=== PATIENT | male | born 1995 | race Caucasian/White ===

== ENCOUNTER 2022-04-18 00:28 | Observation (INO) | payer MEDICAID, SELFPAY ==
[2022-04-18] VITALS (29 sets, daily range): BP systolic 100–163; BP diastolic 41–91; PULSE 48–96; RESP 12–23; TEMP 36.4–37.2; O2SAT 91–100; BMI 30.1
--- NOTE | 2022-04-18 00:47 | XRR_ITS ---
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 TECHNIQUE: Imaging protocol: Radiologic exam of the abdomen. Views: Frontal supine view of the abdomen. 1 View. COMPARISON: No relevant prior studies available. FINDINGS: Gastrointestinal tract: Bowel gas pattern is unremarkable. No sign of obstruction. Intraperitoneal space: No gross free air. Bones/joints: Bones are unremarkable. XR/XR KUB [id number] IMPRESSION: No acute findings.
[2022-04-18 00:52] LABS: Basophils # 0.1 10^3/uL (0.0-0.1); Basophils % 0.5 %; Eosinophils % 0.2 %; Hematocrit 47.6 % (42.0-52.0); Hemoglobin 16.1 g/dL (11.7-16.6); Lymphocytes # 2.6 10^3/uL (0.8-4.8); Lymphocytes % 15.6 %; Mean Corpuscular HGB Conc 33.8 g/dL (30.0-36.0); Mean Corpuscular Hemoglobin 29.4 pg (28.0-34.0); Mean Corpuscular Volume 86.9 fl (80-94); Mean Platelet Volume 11.5 fL (7.4-10.4); Monocytes # 0.9 10^3/uL (0.2-0.9); Monocytes % 5.6 %; Neutrophils # 12.82 10^3/uL (1.8-7.7); Neutrophils % 77.6 %; Nucleated Red Blood Cells % 0 %; Platelet Count 273 10^3/cmm (130-400); Red Blood Count 5.48 10^6/uL (4.1-5.3); Red Cell Distribution Width 11.8 % (12.1-15.1); White Blood Count 16.5 10^3/uL (4.0-10.0)
--- NOTE | 2022-04-18 00:53 | W.ED.ABDPA2 ---
HPI - Abdominal Pain General: Chief Complaint: Abdominal Pain Stated Complaint: Abd pain Time Seen by Provider: 04/18/22 00:38 History of Present Illness: Patient is in today for abdominal pain. Patient does all of the history as patient is in bed grimacing in pain. reports that 3 hours ago patient started with sudden onset abdominal pain. She reports it was after they ate dinner. She reports that he and the rest of the family all ate the same thing and nobody else is feeling ill. She denies that he has been ill or complaining of anything prior to this. She did try and give him some medication for constipation however she believes he threw all of that up. She reports he has vomited 3 or 4 times in the past 3 hours. She denies that the patient has any significant medical history that they are aware of. She denies that he has any allergies to medications. Associated Symptoms: Reports nausea and vomiting; Denies chills, constipation, diarrhea, dysuria and fever(s) Review of Systems Const: Denies: fever(s) or chills Card: Denies: chest pain or palpitations Resp: Denies: dyspnea, productive cough or non-productive cough GI: Reports: abdominal pain, nausea and vomiting; Denies: diarrhea or constipation : Denies: flank pain, difficulty urinating or dysuria Physical Exam Narrative: EXAM NARRATIVE: Patient is laying on his left side when I enter the room. He is holding his abdomen and grimacing in pain. He is minimally cooperative with HPI questioning. He attempts to roll onto his back for examination but starts screaming and rolls directly back over to his side. He is guarding his entire abdomen through the entire exam Const: COMMON NORMALS: alert EXAM LIMITATIONS: other limitations (Pain) Neck/C-Spine: COMMON NORMALS: no JVD Resp: COMMON NORMALS: normal respiratory effort, No use of accessory muscles and clear to auscultation bilaterally AUSCULTATION: clear to auscultation bilaterally Cardio: COMMON NORMALS: no JVD, regular rate, regular rhythm, S1 normal heart sound present, S2 normal heart sound present and No murmurs present (Cardio) RATE: regular rate RHYTHM: regular rhythm HEART SOUNDS: S1 normal heart sound present and S2 normal heart sound present GI: COMMON NORMALS: Normal to inspection, nondistended, normoactive bowel sounds present and Soft to palpation PALPATION: Yes Soft to palpation, Yes Tenderness to palpation present (GI) Details: LLQ, RLQ, LUQ and RUQ and Yes Guarding due to palpation present (GI) in the LLQ, in the RLQ, in the LUQ and in the RUQ Neuro: SENSORIUM/ORIENTATION: Yes alert Course ED course: Patient was given morphine and Zofran for pain. Patient reports that the morphine helped the pain but he became very sleepy. Nursing placed him on O2 nasal cannula to maintain oxygen saturations. Patient is arousable but sleeping when not being spoken to. 0145?CT shows acute appendicitis 0148?paged Dr. Zuñiga who advised to order Zosyn and place bridge orders. He stated that he would take care of patient in the a.m. Discussed patient's case with Dr. Reilly and advised patient of CT findings. Vital Signs: Vital signs: Vital Signs Temperature 97.6 F 04/18/22 00:31 Pulse Rate 65 04/18/22 00:31 Respiratory Rate 16 04/18/22 00:54 Blood Pressure 142/84 04/18/22 00:31 Pulse Oximetry 100 04/18/22 00:54 Oxygen Delivery Me thod 04/18/22 00:31 MDM - Abdominal Pain Medical Decision Making Differentials include abdominal pain, renal stone, bowel perforation, appendicitis White blood cell count elevated 16.5. Patient's pain seems disproportionate to his exam findings. CT with contrast ordered CT shows acute appendicitis without perforation Lab Data 04/18/22 00:48 04/18/22 00:48 Labs/Radiology: Radiology Impressions KUB X-Ray 04/18/22 00:47 IMPRESSION: No acute findings. Abdomen/Pelvis CT 04/18/22 01:13 IMPRESSION: Acute appendicitis. No sign of perforation. ADDENDUM: 04/18/22 0147 THIS REPORT CONTAINS FINDINGS THAT MAY BE CRITICAL TO PATIENT CARE. The findings were verbally communicated via telephone conference with Dr. Reilly at 1:44 AM PROVIDER SCRIBE on 04/18/2022. The findings were acknowledged and understood. Laboratory Results WBC 16.5 10^3/uL (4.0-10.0) H 04/18/22 00:48 RBC 5.48 10^6/uL (4.1-5.3) H 04/18/22 00:48 Hgb 16.1 g/dL (11.7-16.6) 04/18/22 00:48 Hct 47.6 % (42.0-52.0) 04/18/22 00:48 MCV 86.9 fl (80-94) 04/18/22 00:48 MCH 29.4 pg (28.0-34.0) 04/18/22 00:48 MCHC 33.8 g/dL (30.0-36.0) 04/18/22 00:48 RDW 11.8 % (12.1-15.1) L 04/18/22 00:48 Plt Count 273 10^3/cmm (130-400) 04/18/22 00:48 MPV 11.5 fL (7.4-10.4) H 04/18/22 00:48 Neut % (Auto) 77.6 % 04/18/22 00:48 Lymph % (Auto) 15.6 % 04/18/22 00:48 [place] % (Auto) 5.6 % 04/18/22 00:48 Eos % (Auto) 0.2 % 04/18/22 00:48 Baso % (Auto) 0.5 % 04/18/22 00:48 Neut # (Auto) 12.82 10^3/uL (1.8-7.7) H 04/18/22 00:48 Lymph # (Auto) 2.6 10^3/uL (0.8-4.8) 04/18/22 00:48 [place] # (Auto) 0.9 10^3/uL (0.2-0.9) 04/18/22 00:48 Eos # (Auto) 0.0 10^3/uL (0.0-0.8) 04/18/22 00:48 Baso # (Auto) 0.1 10^3/uL (0.0-0.1) 04/18/22 00:48 Nucleated RBC % (auto) 0 % 04/18/22 00:48 Nucleated RBCs # 0.0 /100WBC 04/18/22 00:48 Sodium 138 mmol/L (136-145) 04/18/22 00:48 Potassium 3.7 mmol/L (3.5-5.1) 04/18/22 00:48 Chloride 101 mmol/L (98-107) 04/18/22 00:48 Carbon Dioxide 22 mmol/L (22-29) 04/18/22 00:48 Anion Gap 18.7 (5-19) 04/18/22 00:48 BUN 17 mg/dL (6-20) 04/18/22 00:48 Creatinine 0.8 mg/dL (0.7-1.2) 04/18/22 00:48 GFR Calculation 116.9 mL/min (90-130) 04/18/22 00:48 Glucose 118 mg/dL (65-115) H 04/18/22 00:48 Calculated Osmolality 289 mOsm/kg (285-295) 04/18/22 00:48 Calcium 9.9 mg/dL (8.5-10.5) 04/18/22 00:48 Total Bilirubin 0.6 mg/dL (0.15-1.2) 04/18/22 00:48 AST 25 U/L (0-40) 04/18/22 00:48 ALT 30 U/L (0-41) 04/18/22 00:48 Alkaline Phosphatase 107 U/L (40-130) 04/18/22 00:48 Total Protein 8.1 g/dL (6.6-8.7) 04/18/22 00:48 Albumin 5.1 g/dL (3.5-5.2) 04/18/22 00:48 Globulin 3.0 g/dL (1.3-4.6) 04/18/22 00:48 Lipase 21 U/L (13-60) 04/18/22 00:48 Discharge Plan Discharge Clinical Impression: Acute appendicitis Condition: Stable Prescriptions: No Action No Known Home Medications Patient Instructions: Appendicitis (GEN) Coding Level of Care Code ED Synthetic Resin Operator for Chg Fwd Exam Detailed
[2022-04-18] MEDS: ondansetron 2 mg/ML SDV 2 mL 4 MG IVP ×2 (00:54→08:55)
[2022-04-18] MEDS: morphine 4 mg/mL SDV 1 mL IVP ×3 (00:54→08:55)
[2022-04-18 01:07] LABS: Alanine Aminotransferase 30 U/L (0-41); Albumin Level 5.1 g/dL (3.5-5.2); Alkaline Phosphatase 107 U/L (40-130); Anion Gap 18.7 (5-19); Aspartate Amino Transferase 25 U/L (0-40); Blood Urea Nitrogen 17 mg/dL (6-20); Calcium 9.9 mg/dL (8.5-10.5); Carbon Dioxide 22 mmol/L (22-29); Chloride 101 mmol/L (98-107); Glomerular Filtration Rate 116.9 mL/min (90-130); Glucose 118 mg/dL (65-115); Lipase 21 U/L (13-60); Osmolality Calculated 289 mOsm/kg (285-295); Potassium 3.7 mmol/L (3.5-5.1); Sodium 138 mmol/L (136-145); Total Bilirubin 0.6 mg/dL (0.15-1.2); Total Protein 8.1 g/dL (6.6-8.7)
--- NOTE | 2022-04-18 01:13 | CTR_ITS ---
PROCEDURE INFORMATION: Exam: CT Abdomen And Pelvis With Contrast Exam date and time: 04/18/2022 1:22 AM Age: 27 years old Clinical indication: Abdominal pain; Generalized; Patient HX: Diffuse abd pain with nausea. TECHNIQUE: Imaging protocol: Computed tomography of the abdomen and pelvis with contrast. Radiation optimization: All CT scans at this facility use at least one of these dose optimization techniques: automated exposure control; mA and/or kV adjustment per patient size (includes targeted exams where dose is matched to clinical indication); or iterative reconstruction. Contrast material: OMNI 350; Contrast volume: 100 ml; Contrast route: INTRAVENOUS (IV); Other protocol: This patient has received 0 known CTs and 0 known cardiac nuclear medicine studies in the 12 months prior to the current study. COMPARISON: CR (ABDOMEN, ) 04/18/2022 12:56 AM RADIATION DOSE METRICS: Total DLP (mGy-cm): 654.83 FINDINGS: Lungs: Lung bases are clear. Liver: The liver is normal. Gallbladder and bile ducts: The gallbladder is normal. There is no biliary dilation. Pancreas: The pancreas is unremarkable. Spleen: The spleen is unremarkable. Adrenal glands: The adrenal glands are unremarkable. Kidneys and ureters: The kidneys are unremarkable. No hydronephrosis or stones. No ureteral dilation. Stomach and bowel: The stomach is decompressed, preventing meaningful evaluation of wall thickness. The small bowel is nondilated. The colon is unremarkable. Appendix: The the appendix is enlarged measuring 12 mm diameter. There is an appendicolith at the base visible on series 5, image 63. There is mild periappendiceal edema. No extraluminal fluid or gas. No fluid collection. Intraperitoneal space: There is no free air or significant intraperitoneal free fluid. Vasculature: The aorta is unremarkable. There is no aneurysm. The portal, splenic and superior mesenteric veins are patent. Lymph nodes: There is no lymphadenopathy in the retroperitoneum, mesentery, pelvis or inguinal regions. Urinary bladder: The urinary bladder is unremarkable. Reproductive: The prostate and seminal vesicles are unremarkable. Bones/joints: Bones are unremarkable. Soft tissues: The abdominal wall is intact. CT/CT abdomen pelvis w con* [id number] IMPRESSION: Acute appendicitis. No sign of perforation.
[2022-04-18] MEDS: iohexol 350 mg/mL 500 mL Btl (per mL) IV (01:26)
[2022-04-18] MEDS: piperacillin-tazobactam 3.375 GM in sodium chloride 0.9% (plus) 50 ML IV ×3 (01:57→16:45)
[2022-04-18] MEDS: sodium chloride 0.9% 1,000 ML 100 ML IV ×2 (03:01→20:03)
[2022-04-18 03:36] LABS: Add Urine Microscopic? NO; Charge for UA Resulting for Rev
[2022-04-18 03:47] LABS: Bilirubin Urine Neg (Negative); Blood Urine Neg (Negative); Glucose Urine UA Norm (Normal); Ketones Urine 1+ (Negative); Nitrate Urine Negative (Negative); Protein Urine Neg (Negative); Urine Appearance Clear (CLEAR); Urine Color Yellow (Yellow); pH Urine 8 (5-7)
[2022-04-18 03:48] LABS: Leukocyte Esterase Urine Negative (Negative); Sulfosalicylic Acid Urine Negative (Negative); Urobilinogen Urine Norm (Negative)
--- NOTE | 2022-04-18 09:10 | P.HP_ITS ---
Providers/Chief Complaint Admitting Physician: Juan Pablo Zuñiga DO Chief Complaint: Abd pain History of Present Illness Sabas Moody is a 27 year old male who presents to the hospital for 1 day history of periumbilical and right lower quadrant abdominal pain. The pain is severe and radiates across his abdomen. Sharp pain is elicited by palpation. Nothing seems to make the pain better. He does report nausea and vomiting but denies hematemesis. Denies any diarrhea, constipation, hematochezia and/or melena. He does report chills at home. He is never had abdominal surgery. CT abdomen and pelvis is positive for acute appendicitis. Review of Systems General: Reports: 10 or more systems reviewed and unremarkable except in HPI and below Medications/Allergies Home Medications Medication Instructions Recorded Confirmed Last Taken Type No Known Home Medications 04/18/22 04/18/22 Unknown History Allergies Allergy/AdvReac Type Severity Reaction Status Date / Time No Known Allergies Allergy Verified 04/18/22 00:46 Vitals/I&O/Wt Last Vital Signs Temp 98.5 F 04/18/22 07:51 Pulse 58 L 04/18/22 07:51 Resp 18 04/18/22 08:55 BP 135/78 04/18/22 07:51 Pulse Ox 97 04/18/22 07:51 O2 Del Method 04/18/22 07:51 O2 Flow Rate 2 04/18/22 01:38 04/17/22 04/18/22 04/18/22 22:59 06:59 14:59 Intake Total 50 / 50 0 / 0 Output Total 400 / 400 Balance -350 / -350 0 / 0 Weight last 48 hrs Weight 210 lb Physical Exam Narrative: General : Patient is well developed , no acute distress, oriented x3 Head : Normal cephalic, a-traumatic. Ears : Pinnae and external canal are normal. Hearing is normal. Eyes : PERRLA, Sclera and injection are normal. No conjunctival discharge. Nose : Mucous membranes are without erythema. Throat : buccal mucosa is normal, gums are without significant recession or hypertrophy. Lungs : Equal chest rise bilaterally, no use of accessory muscles, trachea is midline. Cor : Rate and rhythm are normal. Abdomen : Soft, mildly distended, tender to palpation right lower quadrant and periumbilically, positive Rovsing's with some guarding rebound Extremities : No edema, no cyanosis or clubbing, dorsalis pedis pulses are present bilaterally, non-tender to palpation of calves. Upper extremities are normal bilaterally. Back : non-tender to palpation, no CVA tenderness. Neuro : CN II - XII intact, Upper and lower extremities have equal and full strength Data 04/18/22 00:48 04/18/22 00:48 A&P Assessment and plan (1) Acute appendicitis: Plan Laparoscopic Appendectomy The risks and benefits of the procedure, including but not limited to, bleeding, infection, scar, numbness, pain, damage to surrounding structures, conversion to an open procedure, were explained to the patient. He is understanding of the risks and wishes to proceed. Antibiotics Pain control Iman Ferrariestations Medical Necessity Statement*: Patient requires at least 1 further night in the hospital for IV antibiotics following appendectomy Coding Level of Care Code Acute Code for [facility] Diagnoses Acute appendicitis K35.80
--- NOTE | 2022-04-18 10:59 | P.ANESASSM_ITS ---
Pre-Anesthetic Assessment Height/Weight: Height 1.78 m Weight 95.254 kg Temp Pulse Resp BP Pulse Ox O2 Del Method O2 Flow Rate 98.5 F 58 L 18 135/78 97 2 04/18/22 07:51 04/18/22 07:51 04/18/22 08:55 04/18/22 07:51 04/18/22 07:51 04/18/22 07:51 04/18/22 01:38 Operation Date: 04/18/22 12:10 Proposed Procedures p Laparoscopic Appendectomy(Not Applicable) - Juan Pablo Zuñiga DO Familial anesthetic complications: None (Foster care) - unknown family hx Was Beta Patti taken within 24 hours: N/A Was Clonidine taken within 24 hours: N/A Last intake: Intake Last Liquid Date 04/17/22 Last Liquid Time 00:00 Last Solid Date 04/17/22 Last Solid Time 00:00 Social No alcohol and No tobacco Exam alert, oriented x 3, clear to auscultation bilaterally and regular rate & rhythm Airway Mallampati: Class III Dentition: full GI Nausea/Vomiting - Vomited 4x since midnight - states no longer nauseated, just having pain Anesthetic Plan ASA status: 1 Anesthesia: General Risk of > 500 ml blood loss (7ml/kg in children): No Medications/Allergies Home Medications Medication Instructions Recorded Confirmed Last Taken Type No Known Home Medications 04/18/22 04/18/22 Unknown History Allergies Allergy/AdvReac Type Severity Reaction Status Date / Time No Known Allergies Allergy Verified 04/18/22 00:46 Current Medications Generic Name Dose Route Start Last Admin Trade Name Freq PRN Reason Stop Dose Admin Sodium Chloride 1,000 mls @ 100 mls/hr 04/18/22 02:04 04/18/22 03:01 Sodium Chloride 0.9% IV 100 mls/hr .Q10H KATTY Administration Piperacillin Sod/Tazobactam 50 mls @ 12.5 mls/hr 04/18/22 10:00 04/18/22 10:11 Sod 3.375 gm/ Sodium Chloride IV 12.5 mls/hr Q8H KATTY Administration Protocol Morphine Sulfate 4 mg 04/18/22 02:04 04/18/22 08:55 Morphine 4 Mg/Ml Sdv 1 Ml IVP 4 mg Q4H PRN Administration SEVERE PAIN Ondansetron HCl 4 mg 04/18/22 02:04 04/18/22 08:55 Ondansetron 2 Mg/Ml Sdv 2 Ml IVP 4 mg Q6H PRN Administration NAUSEA AND VOMITING Data Anesthesia 04/18/22 00:48 04/18/22 00:48 Short CBC 04/18/22 Range/Units 00:48 WBC 16.5 H (4.0-10.0) 10^3/uL Hgb 16.1 (11.7-16.6) g/dL Hct 47.6 (42.0-52.0) % MCV 86.9 (80-94) fl Plt Count 273 (130-400) 10^3/cmm Neut % (Auto) 77.6 % Neut # (Auto) 12.82 H (1.8-7.7) 10^3/uL BMP 04/18/22 00:48 Sodium 138 Potassium 3.7 Chloride 101 Carbon Dioxide 22 BUN 17 Creatinine 0.8 Glucose 118 H Calcium 9.9 Liver Function 04/18/22 Range/Units 00:48 Total Bilirubin 0.6 (0.15-1.2) mg/dL AST 25 (0-40) U/L ALT 30 (0-41) U/L Alkaline Phosphatase 107 (40-130) U/L Albumin 5.1 (3.5-5.2) g/dL Urine 04/18/22 Range/Units 03:25 Urine Color Yellow (Yellow) Urine Appearance Clear (CLEAR) Urine pH 8 H (5-7) Ur Specific [place] 1.010 (1.005-1.030) Urine Protein Neg (Negative) Urine Glucose (UA) Norm (Normal) Urine Ketones 1+ H (Negative) Urine Nitrate Negative (Negative) Urine Bilirubin Neg (Negative) Ur Leukocyte Esterase Negative (Negative) Cardiac Studies: No Data to Display
[2022-04-18] MEDS: sodium chloride 0.9% 1,000 ML 30 ML IV (11:14)
[2022-04-18] MEDS: fentaNYL 50 mcg/mL INJ 2mL IVP (11:28)
--- NOTE | 2022-04-18 11:53 | PC.NURSE ---
patient resting more comfortably after pain medication
--- NOTE | 2022-04-18 12:57 | P.OP_ITS ---
Operative Report Date of procedure: April 18, 2022 Pre-op diagnosis: Acute appendicitis Post-op diagnosis: other (Acute suppurative appendicitis) Procedure done: Laparoscopic appendectomy Implants: 19 Kiswahili Castro drain Specimens removed/disposition: Appendix Surgeon: Dr. Juan Pablo Zuñiga DO Anesthesia: General Estimated blood loss (mL): 5 Complications: None apparent Brief History: This very pleasant 27-year-old gentleman who came in and was diagnosed with acute appendicitis. Laparoscopic appendectomy was indicated. The risk and benefits were explained and documented. Procedure: Patient was wheeled into the operative room and placed on the OR table in a supine position. Abdomen was inspected prepped and draped in usual sterile fashion. Time-out was performed and all present were in agreement. A 15 blade scalp was used to make a stab incision in the left upper quadrant and intra- abdominal insufflation was achieved using a Veress needle. After localizing the tissue incisions were made and a 12 millimeter trocar was placed into the umbilicus as well as a 5mm in the right lower quadrant and a 5 mm in the left lower quadrant . The appendix was identified and was very inflamed and suppurative. There was purulence in the right lower quadrant and in the pelvis which was suctioned.. I used the Voyant to ligate the mesoappendix at the base. I then used 2 PDS endo-loops to snare the base of the appendix. I then used the Voyant to ligate the appendix distally. The appendix was removed from the abdomen using an Endo-Catch bag through the umbilical incision. I examined the abdomen and no further pathology was identified. A 19 Kiswahili Castro drain was placed into the pelvis and the right colic gutter coming out of the right lower quadrant port site. The drain was sewn in place with 3-0 nylon. Hemostasis was noted. I then closed the umbilical site with a Otoniel-Raul and 0 Vicryl suture in a figure of 8 fashion. All ports removed. Skin was washed and dried. Incisions were closed with 3-0 nylon in a simple interrupted fashion. Sterile dressing was applied. Patient tolerated the procedure well.
--- NOTE | 2022-04-18 14:12 | ANE.PACU2 ---
Inpatient post-anesthesia follow up: Airway intact: Yes Vital signs: Temperature 98.5 F Pulse Rate 63 Respiratory Rate 13 Blood Pressure 100/41 Pulse Oximetry 93 Oxygen Delivery Me thod Room Air Oxygen Flow Rate 2 Fraction of Inspir ed Oxygen Hydration adequate: Yes Nausea and vomiting: No Pain level: 1 Mental status: Baseline
[2022-04-18] MEDS: heparin 5,000 unit/mL INJ 1 mL 5000 UNIT SUBCUT (14:40)
[2022-04-18] MEDS: ketorolac 30 mg/mL INJ IVP ×2 (14:40→19:44)
[2022-04-19] VITALS (8 sets, daily range): BP systolic 113–134; BP diastolic 65–74; PULSE 60–86; RESP 16–20; TEMP 36.4–36.8; O2SAT 93–99
[2022-04-19] MEDS: HYDROcodone-acetaminophen 7.5-325 mg Tablet 1 TAB PO ×2 (00:16→17:30)
[2022-04-19] MEDS: piperacillin-tazobactam 3.375 GM in sodium chloride 0.9% (plus) 50 ML IV ×3 (01:23→17:23)
[2022-04-19] MEDS: ketorolac 30 mg/mL INJ IVP ×4 (01:24→21:08)
[2022-04-19] MEDS: heparin 5,000 unit/mL INJ 1 mL 5000 UNIT SUBCUT ×2 (01:26→13:45)
[2022-04-19 02:30] LABS: Basophils % 0.1 %; Hemoglobin 13.5 g/dL (11.7-16.6); Lymphocytes # 1.8 10^3/uL (0.8-4.8); Lymphocytes % 9.2 %; Mean Corpuscular HGB Conc 32.9 g/dL (30.0-36.0); Mean Corpuscular Hemoglobin 29.3 pg (28.0-34.0); Mean Corpuscular Volume 88.9 fl (80-94); Mean Platelet Volume 11.8 fL (7.4-10.4); Monocytes # 1.4 10^3/uL (0.2-0.9); Monocytes % 7.5 %; Neutrophils # 15.88 10^3/uL (1.8-7.7); Neutrophils % 82.6 %; Nucleated Red Blood Cells % 0 %; Platelet Count 223 10^3/cmm (130-400); Red Blood Count 4.61 10^6/uL (4.1-5.3); Red Cell Distribution Width 12.1 % (12.1-15.1); White Blood Count 19.2 10^3/uL (4.0-10.0)
[2022-04-19 02:55] LABS: Anion Gap 16.2 (5-19); Blood Urea Nitrogen 17 mg/dL (6-20); Calcium 8.7 mg/dL (8.5-10.5); Carbon Dioxide 23 mmol/L (22-29); Chloride 103 mmol/L (98-107); Glomerular Filtration Rate 116.9 mL/min (90-130); Glucose 144 mg/dL (65-115); Osmolality Calculated 290 mOsm/kg (285-295); Potassium 4.2 mmol/L (3.5-5.1); Sodium 138 mmol/L (136-145)
[2022-04-19] MEDS: sodium chloride 0.9% 1,000 ML 100 ML IV ×2 (06:16→16:29)
--- NOTE | 2022-04-19 11:30 | P.PN_ITS ---
Subjective Subjective: Patient seen and controlled abdominal pain. Denies nausea or vomiting. Denies any flatus or bowel movement Vitals/I&O/Wt Last Vital Signs Temp 98.1 F 04/19/22 04:00 Pulse 62 04/19/22 04:00 Resp 17 04/19/22 04:00 BP 120/72 04/19/22 08:00 Pulse Ox 93 04/19/22 04:00 O2 Del Method 04/18/22 15:39 O2 Flow Rate 2 04/18/22 01:38 04/18/22 04/19/22 04/19/22 22:59 06:59 14:59 Intake Total 980 / 2580 1880 / 4460 Output Total Balance 970 / 2565 1874 / 4439 Weight last 48 hrs Weight 210 lb Physical Exam Narrative: General: No acute distress, Abdomen: Soft, appropriately tender, nondistended, no guarding rebound or masses Dressings clean dry and intact Drain serosanguineous Data 04/19/22 01:54 04/19/22 01:54 A&P Assessment and plan (1) Acute appendicitis: Plan Postoperative day #1 status post appendectomy for suppurative appendicitis Antibiotics Pain control I-S use Regular diet Ambulate Likely discharge home tomorrow Attestations Medical Necessity Statement*: Patient requires one more night in the hospital for IV abx following appendectomy Coding Level of Care Code Acute Code for [facility] Diagnoses Acute appendicitis K35.80
--- NOTE | 2022-04-19 12:54 | PC.CHAP ---
Pastoral Care Encounter/Spiritual Assessment Type of Contact [] Declined pickling drum operator visit [] Patient/Family/Request visit [] Outpatient visit [] Follow-up visit [] Physician referral [] Code/Alert [x] Routine visit [] Staff referral [] Actively dying [] Patient sleeping [] Family support [] [] Out of room [] Palliative care [] [] Receiving care in room [] Pre-surgical visit [] Trauma [] Long length of stay [] ICU visit [] Other: Relational/Emotional Strength [x] Patient feels connected with others/family/visitors/staff [] Distress [] Loneliness/isolation [] Abandonment Spirituality of Patient [x] Person of Dar[place] [x] Attends [employer] of their [place] [x] Believes in Prayer [] Reads Bible or Oriental Orthodox materials [] There are Spiritual issues to be addressed Safety Associate Interventions [x] Prayer [] Active listening [] Non-anxious presence [] Spiritual/emotional support [] Crisis/trauma care [] Spiritual counseling [] Bereavement support [] Provided bereavement packet [] Provided Bible/devotional materials [] Provided toy/stuffed animal, coloring book to patient or family member [] Provided Communion [] Anointing/[place] [] Salvation [x] Completed spiritual assessment [] Other: Impact on Illness or Injury [] Angry [] Fearful [] Anxious [] Often cries [] Exhaustion [] Unable to work [] Unable to attend tenriism [] Unable to walk/stand [] Unable to read [] Unable to drive [] Unable to eat/drink [] Unable to sleep [] Unable to be with family [] Patient intubated [] Other: Summary Time spent with patient 10 min
[2022-04-20] VITALS: BP 134/74; PULSE 62; RESP 20; TEMP 36.7; O2SAT 96
[2022-04-20] MEDS: piperacillin-tazobactam 3.375 GM in sodium chloride 0.9% (plus) 50 ML IV ×2 (01:59→10:34)
[2022-04-20] MEDS: sodium chloride 0.9% 1,000 ML 100 ML IV (01:59)
[2022-04-20] MEDS: heparin 5,000 unit/mL INJ 1 mL 5000 UNIT SUBCUT (02:00)
[2022-04-20] MEDS: ketorolac 30 mg/mL INJ IVP ×2 (02:00→08:11)
[2022-04-20 04:00] VITALS: BP 121/71; PULSE 52; RESP 20; TEMP 36.6; O2SAT 95
[2022-04-20 05:10] LABS: Basophils % 0.5 %; Eosinophils # 0.1 10^3/uL (0.0-0.8); Eosinophils % 1.2 %; Hematocrit 37.6 % (42.0-52.0); Lymphocytes # 2.7 10^3/uL (0.8-4.8); Lymphocytes % 33.1 %; Mean Corpuscular HGB Conc 31.9 g/dL (30.0-36.0); Mean Corpuscular Hemoglobin 29.2 pg (28.0-34.0); Mean Corpuscular Volume 91.5 fl (80-94); Mean Platelet Volume 11.8 fL (7.4-10.4); Monocytes # 0.8 10^3/uL (0.2-0.9); Monocytes % 9.7 %; Neutrophils # 4.43 10^3/uL (1.8-7.7); Nucleated Red Blood Cells % 0 %; Platelet Count 167 10^3/cmm (130-400); Red Blood Count 4.11 10^6/uL (4.1-5.3); White Blood Count 8.1 10^3/uL (4.0-10.0)
[2022-04-20 05:38] LABS: Anion Gap 11.7 (5-19); Blood Urea Nitrogen 13 mg/dL (6-20); Carbon Dioxide 24 mmol/L (22-29); Chloride 109 mmol/L (98-107); Glomerular Filtration Rate 136.3 mL/min (90-130); Glucose 102 mg/dL (65-115); Magnesium 1.8 mg/dL (1.7-2.3); Osmolality Calculated 292 mOsm/kg (285-295); Potassium 3.7 mmol/L (3.5-5.1); Sodium 141 mmol/L (136-145)
[2022-04-20 07:43] VITALS: PULSE 60; RESP 14; O2SAT 98
[2022-04-20 08:00] VITALS: BP 114/68; PULSE 65; RESP 16; TEMP 36.6; O2SAT 97
--- NOTE | 2022-04-20 15:43 | PM.DCS ---
Discharge Providers Date of Admission: 04/18/22 02:08 Date of Discharge: April 20, 2022 Attending Provider at Admission: Juan Pablo Zuñiga DO Attending Provider at Discharge: Juan Pablo Zuñiga DO Diagnoses at Discharge Discharge Diagnosis (1) Acute appendicitis: Status: Acute Reason for Visit Reason for Visit: Abd pain Hospital Course Hospital Course This a very pleasant 27-year-old gentleman who came in to the hospital with 1 day history of abdominal pain. He he was found to have acute appendicitis. He underwent laparoscopic appendectomy and was found to have acute suppurative appendicitis with purulence in the abdomen. A drain was placed and he was kept 2 days for IV antibiotics. Drain output was serosanguineous upon discharge. He was discharged home in good condition with antibiotics and pain control. Physical Exam Narrative: General : Patient is well developed , no acute distress, oriented x3 Head : Normal cephalic, a-traumatic. Ears : Pinnae and external canal are normal. Hearing is normal. Eyes : PERRLA, Sclera and injection are normal. No conjunctival discharge. Nose : Mucous membranes are without erythema. Throat : buccal mucosa is normal, gums are without significant recession or hypertrophy. Lungs : Equal chest rise bilaterally, no use of accessory muscles, trachea is midline. Cor : Rate and rhythm are normal. Abdomen : Soft, ND, appropriately tender to palpation, no g/r/m Incisions intact without erythema or exudate Extremities : No edema, no cyanosis or clubbing, dorsalis pedis pulses are present bilaterally, non-tender to palpation of calves. Upper extremities are normal bilaterally. Back : non-tender to palpation, no CVA tenderness. Neuro : CN II - XII intact, Upper and lower extremities have equal and full strength Discharge Data Studies Completed and Pending Completed Studies During Hospitalization Category Date Time Status CT abdomen pelvis w con* [id number] Stat Cat Scan 04/18/22 01:13 Completed XR KUB [id number] Stat Exams 04/18/22 00:47 Completed Pathology: Surgical [PTH] Routine Pth 04/18/22 12:54 Completed Pending at discharge Category Date Time Status BMP [Basic Metabolic Panel] AM LABS Lab 04/21/22 04:00 Ordered CBC Auto Diff [Complete Blood Count w/Auto] AM LABS Lab 04/21/22 04:00 Ordered Magnesium AM LABS Lab 04/21/22 04:00 Ordered Radiology Impressions KUB X-Ray 04/18/22 00:47 IMPRESSION: No acute findings. Abdomen/Pelvis CT 04/18/22 01:13 IMPRESSION: Acute appendicitis. No sign of perforation. ADDENDUM: 04/18/22 0147 THIS REPORT CONTAINS FINDINGS THAT MAY BE CRITICAL TO PATIENT CARE. The findings were verbally communicated via telephone conference with Dr. Reilly at 1:44 AM [employer] PATTERN[employer]ER on 04/18/2022. The findings were acknowledged and understood. Laboratory Results WBC 8.1 10^3/uL (4.0-10.0) 04/20/22 04:31 RBC 4.11 10^6/uL (4.1-5.3) 04/20/22 04:31 Hgb 12.0 g/dL (11.7-16.6) 04/20/22 04:31 Hct 37.6 % (42.0-52.0) L 04/20/22 04:31 MCV 91.5 fl (80-94) 04/20/22 04:31 MCH 29.2 pg (28.0-34.0) 04/20/22 04:31 MCHC 31.9 g/dL (30.0-36.0) 04/20/22 04:31 RDW 12.0 % (12.1-15.1) L 04/20/22 04:31 Plt Count 167 10^3/cmm (130-400) 04/20/22 04:31 MPV 11.8 fL (7.4-10.4) H 04/20/22 04:31 Neut % (Auto) 55.0 % 04/20/22 04:31 Lymph % (Auto) 33.1 % 04/20/22 04:31 [place] % (Auto) 9.7 % 04/20/22 04:31 Eos % (Auto) 1.2 % 04/20/22 04:31 Baso % (Auto) 0.5 % 04/20/22 04:31 Neut # (Auto) 4.43 10^3/uL (1.8-7.7) 04/20/22 04:31 Lymph # (Auto) 2.7 10^3/uL (0.8-4.8) 04/20/22 04:31 Davidson # (Auto) 0.8 10^3/uL (0.2-0.9) 04/20/22 04:31 Eos # (Auto) 0.1 10^3/uL (0.0-0.8) 04/20/22 04:31 Baso # (Auto) 0.0 10^3/uL (0.0-0.1) 04/20/22 04:31 Nucleated RBC % (auto) 0 % 04/20/22 04:31 Nucleated RBCs # 0.0 /100WBC 04/20/22 04:31 Sodium 141 mmol/L (136-145) 04/20/22 04:31 Potassium 3.7 mmol/L (3.5-5.1) 04/20/22 04:31 Chloride 109 mmol/L (98-107) H 04/20/22 04:31 Carbon Dioxide 24 mmol/L (22-29) 04/20/22 04:31 Anion Gap 11.7 (5-19) 04/20/22 04:31 BUN 13 mg/dL (6-20) 04/20/22 04:31 Creatinine 0.7 mg/dL (0.7-1.2) 04/20/22 04:31 GFR Calculation 136.3 mL/min (90-130) H 04/20/22 04:31 Glucose 102 mg/dL (65-115) 04/20/22 04:31 Calculated Osmolality 292 mOsm/kg (285-295) 04/20/22 04:31 Calcium 8.0 mg/dL (8.5-10.5) L 04/20/22 04:31 Magnesium 1.8 mg/dL (1.7-2.3) 04/20/22 04:31 Total Bilirubin 0.6 mg/dL (0.15-1.2) 04/18/22 00:48 AST 25 U/L (0-40) 04/18/22 00:48 ALT 30 U/L (0-41) 04/18/22 00:48 Alkaline Phosphatase 107 U/L (40-130) 04/18/22 00:48 Total Protein 8.1 g/dL (6.6-8.7) 04/18/22 00:48 Albumin 5.1 g/dL (3.5-5.2) 04/18/22 00:48 Globulin 3.0 g/dL (1.3-4.6) 04/18/22 00:48 Lipase 21 U/L (13-60) 04/18/22 00:48 Urine Color Yellow (Yellow) 04/18/22 03:25 Urine Appearance Clear (CLEAR) 04/18/22 03:25 Urine pH 8 (5-7) H 04/18/22 03:25 Ur Specific [place] 1.010 (1.005-1.030) 04/18/22 03:25 Urine Protein Neg (Negative) 04/18/22 03:25 Urine Glucose (UA) Norm (Normal) 04/18/22 03:25 Urine Ketones 1+ (Negative) H 04/18/22 03:25 Urine Blood Neg (Negative) 04/18/22 03:25 Urine Nitrate Negative (Negative) 04/18/22 03:25 Urine Bilirubin Neg (Negative) 04/18/22 03:25 Prot Sulfosalicylic Acd Negative (Negative) 04/18/22 03:25 Urine Urobilinogen Norm mg/dL (Negative) 04/18/22 03:25 Ur Leukocyte Esterase Negative (Negative) 04/18/22 03:25 Procedures Performed Laparoscopic appendectomy Vitals Last Vital Signs Temp 97.8 F 04/20/22 08:00 Pulse 65 04/20/22 08:00 Resp 16 04/20/22 08:00 BP 114/68 04/20/22 08:00 Pulse Ox 97 04/20/22 08:00 O2 Del Method 04/20/22 08:00 O2 Flow Rate 2 04/18/22 01:38 Discharge Plan Discharge Patient Disposition: Home Condition: Stable Prescriptions: New hydrocodone-acetaminophen 7.5-325 mg tablet 1 tab PO Q6H PRN (Reason: pain) Qty: 20 0RF amoxicillin-pot clavulanate 875-125 mg tablet 1 tab PO BID Qty: 28 0RF DOK 100 mg capsule 100 mg PO BID Qty: 20 0RF Discharge Orders: Discharge Order (Routine); Ordered 04/20/22 Ordered By: Juan Pablo Zuñiga Referrals: Juan Pablo Zuñiga DO [Physician] - 05/01/22 2:30 pm Steven Dorsey MD [Referring] - 04/25/22 2:30 am (Please arrive at 2:00pm to fill out paperwork. Bring your 2020 taxes, so they can figure out your payment on their sliding scale. Any questions, feel free & call prior your appointment. ) Discharge Diet: Advance as tolerated Discharge Activity: Resume usual activity Patient Instructions: Appendicitis (GEN), Opioid Safety, Post Anesthesia Care Activity Restrictions/Additional Instructions: Keep bandage on for 2 days. Do not soak incisions underwater for 2 weeks. Stand Alone Forms: Work/School Release Discharge Attestations Time Spent in Discharge Care*: less than 30 min Quality Metrics Clinical Quality Measures [ No reported AMI, CVA or VTE this stay] Coding Level of Care Code Acute Chg [facility] note Diagnoses Acute appendicitis K35.80
== END 2022-04-20 17:46 | disposition home or self-care (01) ==
LOC: ER 01:54 → MEDSURG 02:09
PROVIDERS: Admitting Provider Surgery; Emergency Provider Nurse Practitioner Family; Visit Provider Surgery
PROC: 0DTJ4ZZ Resection of Appendix, Percutaneous Endoscopic Approach (ICD-10-PCS; CPT 44970; principal; 2022-04-18 12:10)
DX: K35.33 Acute appendicitis with perforation, localized peritonitis, and gangrene, with abscess (principal)
CPT/HCPCS: 44970; 36415; 74018; 74177; 80048; 80053; 81003; 83690; 83735; 85025; 88304; 96365; 96372; 96375; 99285; G0378; J0131; J1100; J1170; J1644; J1885; J2270; J2405; J2543; J2704; J2710; J3010; J3490; J7030; Q9967

== ENCOUNTER 2023-05-24 15:13 | Emergency (ER) | payer OTHER, MEDICAID, SELFPAY ==
[2023-05-24 15:18] VITALS: BP 157/75; PULSE 61; RESP 16; O2SAT 99
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
[2023-05-24 16:36] VITALS: BP 148/52; PULSE 61; RESP 15; O2SAT 95
== END 2023-05-24 16:37 | disposition home or self-care (01) ==
PROVIDERS: Emergency Provider Physician Assistant
DX: Z04.1 Encounter for examination and observation following transport accident (principal); S13.4XXA Sprain of ligaments of cervical spine, initial encounter; S39.012A Strain of muscle, fascia and tendon of lower back, initial encounter; V89.2XXA Person injured in unspecified motor-vehicle accident, traffic, initial encounter
CPT/HCPCS: 72100; 72125; 99284

== ENCOUNTER 2024-06-18 06:09 | Emergency (ER) | payer MEDICAID, OTHER, SELFPAY ==
[2024-06-18 06:14] VITALS: BP 169/108; PULSE 108; RESP 18; TEMP 37.8; O2SAT 93; BMI 35.2
--- NOTE | 2024-06-18 06:28 | XR_ITS ---
WS: [id number] Exam: XR chest 1V portable [id number] Date/Time of Exam: 06/18/2024 6:28 AM Reason For Exam: dyspnea/cough No priors. Lungs are fully inflated and clear. Normal cardiomediastinal silhouette and regional bony elements. No pleural effusion. XR/XR chest 1V portable [id number] IMPRESSION: 1. Negative chest.
--- NOTE | 2024-06-18 06:28 | ECG_ITS ---
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 Measurements Intervals Delta Rate: 105 P: 51 OR: 150 QRS: 81 QRSD: 92 T: 55 QT: 319 QTc: 422 Interpretive Statements SINUS TACHYCARDIA ABNORMAL RHYTHM ECG No previous ECG available for comparison Electronically Signed On 06-18-2024 22:21:16 CDT by Colton Fernandez M.D. [email or web address] [id number]
[2024-06-18 06:40] VITALS: BP 131/78; PULSE 99; RESP 16; O2SAT 96
[2024-06-18 06:42] LABS: Basophils # 0.1 10^3/uL (0.0-0.1); Basophils % 0.4 %; Eosinophils % 0.1 %; Hematocrit 44.2 % (37-53); Lymphocytes # 1.5 10^3/uL (0.8-4.8); Mean Corpuscular HGB Conc 34.6 g/dL (30-55); Mean Corpuscular Hemoglobin 29.9 pg (27-33); Mean Corpuscular Volume 86.5 fl (82-101); Mean Platelet Volume 11.2 fL (7.4-10.4); Monocytes # 1.1 10^3/uL (0.2-0.9); Monocytes % 7.5 %; Neutrophils # 11.34 10^3/uL (1.8-7.7); Neutrophils % 80.6 %; Nucleated Red Blood Cells % 0 %; Platelet Count 215 10^3/cmm (157-399); Red Blood Count 5.11 10^6/uL (3.85-5.65); Red Cell Distribution Width 11.4 % (12.1-15.1); White Blood Count 14.05 10^3/uL (3.29-11.43)
[2024-06-18 06:58] LABS: Alanine Aminotransferase 56 U/L (0-41); Albumin Level 4.6 g/dL (3.5-5.2); Alkaline Phosphatase 98 U/L (40-130); Aspartate Amino Transferase 34 U/L (0-40); Blood Urea Nitrogen 14 mg/dL (6-20); Calcium 9.3 mg/dL (8.5-10.5); Carbon Dioxide 23 mmol/L (22-29); Chloride 100 mmol/L (98-107); Creatinine Clr Calc Pharmacy 152.5343; Globulin 3.1 g/dL (1.3-4.6); Glomerular Filtration Rate 100.5 mL/min (90-130); Glucose 105 mg/dL (65-115); Osmolality Calculated 283 mOsm/kg (285-295); Sodium 136 mmol/L (136-145); Total Bilirubin 0.5 mg/dL (0.15-1.2); Total Protein 7.7 g/dL (6.6-8.7)
[2024-06-18 06:59] LABS: Troponin(5th) Baseline < 6 ng/L (0-15)
[2024-06-18 07:09] VITALS: BP 135/59
--- NOTE | 2024-06-18 07:12 | ED_ITS ---
HPI - Back Pain/Injury 2 General: Chief Complaint: Back Pain/Injury Stated Complaint: lower back pain Time Seen by Provider: 06/18/24 06:27 History of Present Illness: 29-year-old male presents to the emergen cy room complaining of back pain. His complaint of low back pain that began over the last couple of days. He his is with him he also made, he has had problems with his urinary tract infections in the past. While he was in the waiting room he developed some right-sided chest pain does not really have any shortness of breath with this. Chest pain is low on the right side. Denies any triggering events he is not in his thing that aggravates or relieves his symptoms other than he has dysuria urgency. Patient has been febrile in the presents here with a temp of 100. No cough no diarrhea. Vomited once prior to arrival still somewhat nauseous. Associated symptoms: Reports dysuria; Deny abdominal pain, chills, fever(s) or urinary urgency Related Data Previous Rx's ?Medication ?Instructions ?Recorded ondansetron HCl 4 mg tablet 4 mg PO Q6H PRN nausea and 06/18/24 vomiting #20 tabs Allergies Allergy/AdvReac Type Severity Reaction Status Date / Time No Known Allergies Allergy Verified 06/18/24 06:18 Review of Systems 2 Const: Denies: fever(s) or chills Card: Denies: chest pain Resp: Denies: dyspnea GI: Denies: abdominal pain : Reports: dysuria and urinary frequency; Denies: urinary urgency Musc: Denies: neck pain or back pain Skin/Breast: Denies: rash PFSH ED 2 PFSH: Surgical History Hx of appendectomy Social History Smoking and tobacco/nicotine status: never used tobacco/nicotine Alcohol intake: never Substance/Drug Use: never Adopted: No Lives independently: Yes Household members: spouse and children Housing: House Marital status: Current occupational status: employed Physical Exam 2 Const: COMMON NORMALS: no acute distress GENERAL APPEARANCE: cooperative and comfortable ORIENTATION/CONSCIOUSNESS: Yes awake, Yes oriented to person, Yes oriented to place and Yes oriented to time HENMT: COMMON NORMALS: normocephalic, atraumatic and hearing grossly normal bilaterally HEAD & SCALP: normocephalic and atraumatic Resp: COMMON NORMALS: normal respiratory effort, No retractions, No use of accessory muscles and clear to auscultation bilaterally AUSCULTATION: clear to auscultation bilaterally Cardio: COMMON NORMALS: regular rate, regular rhythm and No murmurs present (Cardio) RATE: regular rate RHYTHM: regular rhythm GI: COMMON NORMALS: Soft to palpation and No hepatosplenomegaly present A USCULTATION: Yes normoactive bowel sounds PALPATION: Yes Soft to palpation, No Tenderness to palpation present (GI), No Guarding due to palpation present (GI) and Yes No hepatosplenomegaly present : BLADDER/KIDNEY EXAM: Yes CVA tenderness Back/Pelvis: GENERAL BACK: Yes CVA tenderness CVA tenderness: bilateral Extremity: COMMON NORMALS: normal to inspection, capillary refill normal, no clubbing, cyanosis or edema, no calf tenderness and no pedal edema Neuro: SENSORIUM/ORIENTATION: Yes oriented to person, Yes oriented to place and Yes oriented to time Skin: COMMON NORMALS: no rashes or lesions noted GENERAL SKIN EXAM: no rashes or lesions noted Course 2 Vital Signs: Vital signs: Vital Signs Temperature 100.0 F H 06/18/24 06:14 Pulse Rate 91 06/18/24 09:25 Respiratory Rate 16 06/18/24 06:40 Blood Pressure 133/67 06/18/24 09:25 Pulse Oximetry 99 06/18/24 09:25 Oxygen Delivery Me thod Room Air 06/18/24 08:12 MDM - Back Pain/Injury Medical Decision Making CT negative. UA no infection. Does have a mild leukocytosis he is feeling quite a bit better. Suspect his symptoms are due to gastroenteritis discharge patient home nausea medications as needed follow-up as needed. Labs 06/18/24 06:29 06/18/24 06:29 Radiology Impressions Chest X-Ray 06/18/24 06:28 IMPRESSION: 1. Negative chest. Abdomen/Pelvis CT 06/18/24 07:24 IMPRESSION: 1. No acute findings. 2. Mild splenomegaly. Laboratory Results WBC 14.05 10^3/uL (3.29-11.43) H 06/18/24 06:29 RBC 5.11 10^6/uL (3.85-5.65) 06/18/24 06: Hgb 15.30 g/dL (11.27-16.99) 06/18/24 06: Hct 44.2 % (37-53) 06/18/24 06: MCV 86.5 fl (82-101) 06/18/24 06: MCH 29.9 pg (27-33) 06/18/24 06: MCHC 34.6 g/dL (30-55) 06/18/24 06: RDW 11.4 % (12.1-15.1) L 06/18/24 06: Plt Count 215 10^3/cmm (157-399) 06/18/24 06: MPV 11.2 fL (7.4-10.4) H 06/18/24 06: Neut % (Auto) 80.6 % 06/18/24 06: Lymph % (Auto) 11.0 % 06/18/24 06: [place] % (Auto) 7.5 % 06/18/24 06: Eos % (Auto) 0.1 % 06/18/24 06: Baso % (Auto) 0.4 % 06/18/24 06: Neut # (Auto) 11.34 10^3/uL (1.8-7.7) H 06/18/24 06: Lymph # (Auto) 1.5 10^3/uL (0.8-4.8) 06/18/24 06: [place] # (Auto) 1.1 10^3/uL (0.2-0.9) H 06/18/24 06: Eos # (Auto) 0.0 10^3/uL (0.0-0.8) 06/18/24 06: Baso # (Auto) 0.1 10^3/uL (0.0-0.1) 06/18/24 06: Nucleated RBC % (auto) 0 % 06/18/24 06: Nucleated RBCs # 0.0 /100WBC 06/18/24 06: Sodium 136 mmol/L (136-145) 06/18/24 06: Potassium 4.0 mmol/L (3.5-5.1) 06/18/24 06: Chloride 100 mmol/L (98-107) 06/18/24 06:29 Carbon Dioxide 23 mmol/L (22-29) 06/18/24 06:29 Anion Gap 17.0 (5-19) 06/18/24 06: BUN 14 mg/dL (6-20) 06/18/24 06:29 Creatinine 0.9 mg/dL (0.7-1.2) 06/18/24 06:29 GFR Calculation 100.5 mL/min (90-130) 06/18/24 06: Glucose 105 mg/dL (65-115) 06/18/24 06:29 Calculated Osmolality 283 mOsm/kg (285-295) L 06/18/24 06: Calcium 9.3 mg/dL (8.5-10.5) 06/18/24 06: Total Bilirubin 0.5 mg/dL (0.15-1.2) 06/18/24 06: AST 34 U/L (0-40) 06/18/24 06: ALT 56 U/L (0-41) H 06/18/24 06:29 Alkaline Phosphatase 98 U/L (40-130) 06/18/24 06:29 Troponin T Baseline < 6 ng/L (0-15) 06/18/24 06: Troponin T 120 Minute 6.00 ng/L (0-15) 06/18/24 08:13 Delta Troponin T 0.43269 ABS# (0-10) 06/18/24 08:13 Total Protein 7.7 g/dL (6.6-8.7) 06/18/24 06: Albumin 4.6 g/dL (3.5-5.2) 06/18/24 06: Globulin 3.1 g/dL (1.3-4.6) 06/18/24 06:29 Urine Color Yellow (Yellow) 06/18/24 07:05 Urine Appearance Clear (CLEAR) 06/18/24 07:05 Urine pH >=9.0 (5-7) A 06/18/24 07:05 Ur Specific [place] 1.024 (1.005-1.030) 06/18/24 07:05 Urine Protein Trace (Negative) A 06/18/24 07:05 Urine Glucose (UA) Negative (Normal) 06/18/24 07:05 Urine Ketones Negative (Negative) 06/18/24 07:05 Urine Blood Negative (Negative) 06/18/24 07:05 Urine Nitrate Negative (Negative) 06/18/24 07:05 Urine Bilirubin Negative (Negative) 06/18/24 07:05 Urine Urobilinogen 1.0 mg/dL (Negative) 06/18/24 07:05 Ur Leukocyte Esterase Negative (Negative) 06/18/24 07:05 Urine RBC 0-2 /hpf (0-2) 06/18/24 07:05 Urine WBC 0-5 /hpf (0-5) 06/18/24 07:05 Ur Squamous Epith Cells 0-5 /hpf (0-5) 06/18/24 07:05 Amorphous Sediment Not Reportable 06/18/24 07:05 Urine Bacteria None seen /hpf (NONE) 06/18/24 07:05 Hyaline Casts 0-4 /lpf H 06/18/24 07:05 Influenza A (PCR) Negative (Negative) 06/18/24 06:29 Influenza Type B (PCR) Negative (Negative) 06/18/24 06:29 RSV (PCR) Negative (Negative) 06/18/24 06:29 SARS-CoV-2 (PCR) Negative (Negative) 06/18/24 06:29 All radiology interpretation(s) finalized by discharge Discharge Plan Discharge Patient Disposition: Home Clinical Impression: Viral gastroenteritis Condition: Stable Prescriptions: New ondansetron HCl 4 mg tablet 4 mg PO Q6H PRN (Reason: nausea and vomiting) Qty: 20 0RF Discharge Orders: Discharge ED (Routine); Ordered 06/18/24 Ordered By: Omer Gonzalez Referrals: Deon Monae MD [Primary Care Provider] - Patient Instructions: Opioid Safety, Pain Management Activity Restrictions/Additional Instructions: Thank you for choosing [facility] for your healthcare needs today. It is very important that you follow up as instructed or that you return to the Emergency Department should you have concerns or if your condition changes or worsens in any way. You were seen in the emergency room with complaints of low back pain nausea and vomiting. Your vital signs remained stable your cardiac enzymes were normal your EKG did not show anything acute CT of your abdomen pelvis was normal. Your urine was also normal. There was a little bit of splenomegaly which is consistent with a viral gastroenteritis. One of your liver enzymes was very minimally elevated this is also not a typical of a gastroenteritis these things usually resolve spontaneously. Recommend clear liquid diet for the next 24 to 48 hours and follow-up with your primary care doctor if you have persistent or worsening symptoms. You can take Tylenol or Profen as needed. Stand Alone Forms: Work/School Release Print Language: Cook Islander Coding Level of Care Code ED Pension Consultant for Caitlyn Ventura
[2024-06-18 07:22] LABS: Influenza A NEGATIVE (Negative); Influenza B NEGATIVE (Negative); Respiratory Syncytial Virus Ce NEGATIVE (Negative); SARS-CoV-2 PCR NEGATIVE (Negative)
--- NOTE | 2024-06-18 07:24 | CTR_ITS ---
PROCEDURE INFORMATION: Exam: CT Abdomen And Pelvis Without Contrast Exam date and time: 06/18/2024 7:42 AM Age: 29 years old Clinical indication: Abdominal pain; Flank; Lower; Prior surgery; Surgery date: 6+ months; Surgery type: Appy; Additional info: Flank pain TECHNIQUE: Imaging protocol: Computed tomography of the abdomen and pelvis without contrast. Radiation optimization: All CT scans at this facility use at least one of these dose optimization techniques: automated exposure control; mA and/or kV adjustment per patient size (includes targeted exams where dose is matched to clinical indication); or iterative reconstruction. COMPARISON: CT abdomen pelvis w con* [id number] 04/18/2022 1:22 AM RADIATION DOSE METRICS: Total DLP (mGy-cm): 989.33 FINDINGS: Liver: Normal. No mass. Gallbladder and biliary ducts: Normal. No calcified stones. No ductal dilation. Pancreas: Normal. No ductal dilation. Spleen: 14 cm splenomegaly. Adrenal glands: Normal. No mass. Kidneys and ureters: Normal. No hydronephrosis. Stomach and bowel: Unremarkable. No obstruction. No mucosal thickening. Appendix: No evidence of appendicitis. Intraperitoneal space: Unremarkable. No free air. No significant fluid collection. Vasculature: Unremarkable. No abdominal aortic aneurysm. Lymph nodes: Unremarkable. No enlarged lymph nodes. Urinary bladder: Unremarkable as visualized. Reproductive: Unremarkable as visualized. Bones/joints: Unremarkable. No acute fracture. Soft tissues: Unremarkable. CT/CT kidney stone [id number] IMPRESSION: 1. No acute findings. 2. Mild splenomegaly.
[2024-06-18] MEDS: ketorolac 30 mg/mL INJ IVP (07:34)
[2024-06-18] MEDS: ondansetron 2 mg/ML SDV 2 mL 4 MG IVP (07:34)
[2024-06-18 08:12] VITALS: BP 139/78; PULSE 96; O2SAT 92
--- NOTE | 2024-06-18 08:28 | ECG_ITS ---
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 Measurements Intervals [place] Rate: 94 P: 55 GA: 136 QRS: 86 QRSD: 92 T: 64 QT: 341 QTc: 427 Interpretive Statements SINUS RHYTHM Compared to ECG 06/18/2024 06:18:10 Sinus tachycardia no longer present Electronically Signed On 06-18-2024 22:24:49 CDT by Colton Fernandez M.D. [email or web address]
[2024-06-18 08:46] LABS: Bilirubin Urine Negative (Negative); Blood Urine Negative (Negative); Glucose Urine UA Negative (Normal); Ketones Urine Negative (Negative); Leukocyte Esterase Urine Negative (Negative); Nitrate Urine Negative (Negative); Protein Urine Trace (Negative); Specific Gravity, Urine 1.024 (1.005-1.030); Urine Appearance Clear (CLEAR); Urine Color Yellow (Yellow); pH Urine >=9.0 (5-7)
[2024-06-18 08:51] LABS: Add Urine Microscopic? YES; Bacteria Urine None Seen /hpf; Hyaline Casts Urine 0-4 /lpf; RBC Urine 0-2 /hpf (0-2); Squamous Epithelial Cell Urine 0-5 /hpf (0-5); WBC Urine 0-5 /hpf (0-5)
[2024-06-18 09:01] LABS: Troponin 5 2HR Delta 0.00001 ABS# (0-10)
[2024-06-18 09:25] VITALS: BP 133/67; PULSE 91; O2SAT 99
== END 2024-06-18 09:26 | disposition home or self-care (01) ==
PROVIDERS: Emergency Provider Family Medicine; PCP Family Medicine
DX: A08.4 Viral intestinal infection, unspecified (principal); Z11.52 Encounter for screening for COVID-19
CPT/HCPCS: 36415; 71045; 74176; 80053; 81001; 84484; 85025; 87040; 87637; 93005; 96374; 96375; 99285; J1885; J2405

== ENCOUNTER 2025-03-03 22:35 | Emergency (ER) | payer OTHER, SELFPAY ==
[2025-03-03] VITALS (15 sets, daily range): BP systolic 122–152; BP diastolic 72–89; PULSE 48–56; RESP 16–34; TEMP 36.3; O2SAT 96–99; BMI 30.1
--- NOTE | 2025-03-03 22:39 | ECG_ITS ---
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 Measurements Intervals [place] Rate: 51 P: 16 NM: 149 QRS: 65 QRSD: 98 T: 31 QT: 419 QTc: 388 Interpretive Statements SINUS BRADYCARDIA Compared to ECG 06/18/2024 09:13:37 Sinus rhythm no longer present Electronically Signed On 03-04-2025 17:25:24 SAP BUSINESS OBJECTS CONSULTANT by Colton Fernandez M.D. [email or web address]
--- OUTSIDE RECORDS SUMMARY | 2025-03-03 22:43 | XMS_ITS | Data Portability ---
Author Organization [place] - Danish [facility] Address [address] [place] [address] Assessment No assessment recorded. Plan of Treatment Reminders Order Date Submit Date Provider Last Modified By Organization Details Last Modified Time Details Appointments None recorded. Lab urinalysis , dipstick 2024 [facility] [address] [place], [address], 08:40:05 culture, urine 2024 025 scanR [facility], [address] [place] [address], [facility] [address] [place], [address], 21:05:56 Referral None recorded. Procedures None recorded. Surgeries None recorded. Imaging None recorded. Medication Orders Bactrim DS 800 mg-160 mg tablet 2024 025 ISLIP TERRACE DNS:[facility], [address], [place], [address], 08:51:38 Patient TargetsNo targets recorded. Patient InstructionsNo instructions recorded. Reason for Referral None Reported. Results Created Date Observation Date Name Description Value Unit Range Abnormal Flag Note LastModifiedBy Organization Detail LastModifiedTime 06/20/1906/20/2024 CULTU RE, URINE , ROUTI NE culture, urine, routine SEE NOTE CULTU RE, URINE , ROUTI NE Micro Numbe r: [id number] Test Statu s: Final Speci men Sourc e: Urine Speci men Quali ty: Adequ ate Resul t: No Growt h Not Available [facility] [address] [place], [address], 06/20/2024 21:05:56 06/20/19 25 06/19/2024 urina lysis , dipst ick Leukocytes Negati ve Not Available [facility] ([facility]) [address] [place] [address], [phone], 06/19/2024 08:27:51 06/20/19 25 06/19/2024 urina lysis , dipst ick Nitrite negati ve Not Available [facility] ([facility]) [address] [place] [address], [address], 06/19/2024 08:27:51 06/20/19 25 06/19/2024 urina lysis , dipst ick Urobilinogen .2 Not Available [facility] ([facility]) [address] [place] [address], [phone], 06/19/2024 08:27:51 06/20/19 25 06/19/2024 urina lysis , dipst ick Protein Negati ve Not Available [facility] ([facility]) [address] [place] [address], [phone], 06/19/2024 08:27:51 06/20/19 25 06/19/2024 urina lysis , dipst ick pH 6.0 Not Available [facility] ([facility]) [address] [place] [address], [phone], 06/19/2024 08:27:51 06/20/19 25 06/19/2024 urina lysis , dipst ick Blood Non-He molyze d: Trace Not Available [facility] ([facility]) [address] [place] [address], [phone], 06/19/2024 08:27:51 06/20/19 25 06/19/2024 urina lysis , dipst ick Specific [place] 1.010 Not Available [facility] ( [facility]) [address] [place], [address], 06/19/2024 08:27:51 06/20/19 25 06/19/2024 urina lysis , dipst ick Ketone Negati ve Not Available [facility] ([facility]) [address] [place], [address], 06/19/2024 08:27:51 06/20/19 25 06/19/2024 urina lysis , dipst ick Bilirubin Negati ve Not Available [facility] ([facility]) [address] [place], [address], 06/19/2024 08:27:51 06/20/19 25 06/19/2024 urina lysis , dipst ick Glucose Negati ve Not Available [facility] ([facility]) [address] [place], [address], 06/19/2024 08:27:51 06/20/1906/19/2024 urina lysis , dipst ick Appearance Clear Not Available [facility] ([facility]) [address] [place], [address], 06/19/2024 08:27:51 06/20/19 25 06/19/2024 urina lysis , dipst ick Color Pale Yellow Not Available [facility] ([facility]) [address] [place], [address], 06/19/2024 08:27:51 Result Notes None recorded. Procedures Surgical History Date Name Laterality Status Provider Name and Address Organization Details Recorded Time [facility] 06/19/2024 08:29:47 Imaging Results None recorded. Procedure Notes None recorded. Medical Equipment None Reported. Allergies No known drug allergies Medications Name Sig Start Date Stop Date Status Note LastModified by Organization Details LastModified Time hydrocodone 7.5 mg-acetamino phen 325 mg tablet TAKE ONE TABLET BY MOUTH EVERY 6 HOURS NEEDED FOR PAIN 06/18 completed Not Available Not Available Not Available docusate sodium 100 mg capsule TAKE ONE CAPSULE BY MOUTH TWICE DAILY 06/18 completed Not Available Not Available Not Available amoxicillin 875 mg-potassium clavulanate 125 mg tablet TAKE ONE TABLET BY MOUTH TWICE DAILY 06/18 completed Not Available Not Available Not Available Bactrim DS 800 mg-160 mg tablet Take 1 tablet every 12 hours by oral route for 7 days. 2024 active Not Available Not Available Not Avai lable Vitals Date Recorded Body weight Body mass index (BMI) Body height Oxygen saturation Heart rate Respiratory rate Body temperature Systolic And Diastolic Provider Name and Address Organization Details Last Updated DateTime 5 197333. 97 g 36.4 kg/m2 177.8 cm 96 % 89 /min 18 /min 99 [degF] 150/100 mm[Hg] YUSUF [facility] 5 10:55:26 Date Recorded Body height Body mass index (BMI) Body weight Oxygen saturation Heart rate Respiratory rate Body temperature Systolic And Diastolic Provider Name and Address Organization Details Last Updated DateTime 5 177.8 cm 36.3 kg/m2 291359. 87 g 96 % 86 /min 16 /min 98.1 [degF] 148/88 mm[Hg] Nicole Miller [facility] 5 08:34:26 Social History None recorded. Functional Status None recorded. Mental Status None recorded. Family History Nothing Reported. Medical History No medical history recorded. Past Encounters Encounter ID Performer Location Encounter Start Date Encounter Closed Date Diagnosis/Indication Diagnosis SNOMED-CT Code Diagnosis ICD10 Code Diagnosis IMO Codes Diagnosis Note [id number] Tanvir Lundberg MD [facility] ([facility]) [address] [place] [phone] 06/18/2024 10:44:35 06/18/2024 11:10:14 [id number] SKYLA MENDEZ [facility] ([facility]) [address] [place] [address] 06/19/2024 08:23:21 06/19/2024 09:55:21 Dysuria 50116546 R30.0 UA results reviewed and discussed with pt. We will start antibiotic s. Pt will increase oral fluids and can use cranberry. Return to office with no improvemen t or any problems. Go to ER with severe worsening or severe problems.W e will obtain urine culture Health Concerns Section Related Observation LastModified by Organization Detai ls LastModified Time None Recorded Concern Status LastModified by Organization Details LastModified Time None Recorded Advance Directives Directive None Recorded Payers Insurance Date Sequence Insurance Name Policy Number Policy King Covered Member ID King Member ID Guarantor Name 06/18/2024 1 [employer]IR[employer] - DOMIETTER FROM [employer]AT[employer] PLAN (EPO) [id number] Sabas Moody [id number] Sabas Moody 06/18/2024 1 [place] Sabas Moody [id number] Sabas Moody Notes Date Note Type Note Provider Name and Address Organization Details Recorded Time 06/18/2024 text/html Lower Urinary Tr act Symptoms (LUTS)Reported by PatientHPIFor associated symptoms, patient reportslow back pain,chills,fever, anddysuria. For severity, patient reportsworsening. For duration, patient reports< 1 week.ROS as noted in the HPI Patient c/o lower back pain and dysuria. He states it started yesterday about noon at work. He got dizzy and started chilling. He states it madden when he urinates. He just got out of the ER and was diagnosed with the flu and said his urine was clear. He's here for a second opinion. NISREEN Patel - [facility] 06/18/2024 11:10:13 06/19/2024 text/html Lower Urinary Tr act Symptoms (LUTS)Reported by PatientROS as noted in the HPI walk in patientpatient is here today for fever, body aches, burning when urinating, and lower back pain that started 2 days ago, patient was seen in the ER yesterday. The ER tested him for covid, flu, rsv, urine, and bloodwork. Covid, flu, rsv, urine were negative. Pt is not sure what labs were checked with the blood. ЕКАТЕРИНА RADFORD, [address], [address], [facility] 06/19/2024 09:14:27
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
--- NOTE | 2025-03-03 23:45 | XRR_ITS ---
PROCEDURE INFORMATION: Exam: XR Chest Exam date and time: 03/03/2025 11:46 PM Age: 30 years old Clinical indication: Pain; Angina pectoris; Additional info: Chest pain TECHNIQUE: Imaging protocol: Radiologic exam of the chest. Views: 1 view. COMPARISON: CR XR chest 1V portable [id number] 06/18/2024 6:34 AM FINDINGS: Lungs: Unremarkable. No consolidation. Pleural spaces: Unremarkable. No pleural effusion. No pneumothorax. Heart/Mediastinum: Unremarkable. No cardiomegaly. Bones/joints: Unremarkable. XR/XR chest 1V portable [id number] IMPRESSION: No acute findings.
[2025-03-04] VITALS (37 sets, daily range): BP systolic 111–140; BP diastolic 51–77; PULSE 44–66; RESP 10–31; O2SAT 96–99
[2025-03-04 00:22] LABS: Hematocrit 41.7 % (37-53); Hemoglobin 13.60 g/dL (11.27-16.99); Mean Corpuscular HGB Conc 32.6 g/dL (30-55); Mean Corpuscular Hemoglobin 28.9 pg (27-33); Mean Corpuscular Volume 88.7 fl (82-101); Nucleated Red Blood Cells % 0 %; Platelet Count 206 10^3/cmm (157-399); Red Blood Count 4.70 10^6/uL (3.85-5.65); White Blood Count 8.51 10^3/uL (3.29-11.43)
--- NOTE | 2025-03-04 00:51 | ECG_ITS ---
[facility] Test Date: 2025-03-04 Pat Name: Sabas Moody Department: Room: Gender: Male First Assist: : 1995 Requested By: Pily Sher Order Number: [id number] Erin MD: Colton Fernandez M.D. Measurements Intervals Sharon Rate: 48 P: 13 OH: 154 QRS: 54 QRSD: 101 T: 28 QT: 451 QTc: 403 Interpretive Statements SINUS BRADYCARDIA EARLY REPOLARIZATION [ST ELEVATION WITH NORMALLY INFLECTED T-WAVE] Compared to ECG 03/03/2025 22:39:03 Early repolarization now present Electronically Signed On 03-04-2025 17:40:35 HEAT TREAT OPERATOR by Colton Fernandez M.D. [email or web address]
[2025-03-04 00:55] LABS: Troponin(5th) Baseline < 6 ng/L (0-15)
[2025-03-04 01:12] LABS: Anion Gap 12.3 (5-19); Blood Urea Nitrogen 15 mg/dL (6-20); Calcium 9.2 mg/dL (8.5-10.5); Carbon Dioxide 27 mmol/L (22-29); Chloride 106 mmol/L (98-107); Glucose 99 mg/dL (65-115); Osmolality Calculated 293 mOsm/kg (285-295); Potassium 4.3 mmol/L (3.5-5.1); Sodium 141 mmol/L (136-145)
--- NOTE | 2025-03-04 15:33 | DCPLANNER ---
messaged heart care for er f/u
== END 2025-03-04 03:23 | disposition home or self-care (01) ==
PROVIDERS: Emergency Provider Emergency Medicine; PCP Family Medicine
DX: M54.2 Cervicalgia (principal); R07.9 Chest pain, unspecified
CPT/HCPCS: 36415; 71045; 80048; 84484; 85025; 85378; 93005; 99285; J9999